=== PATIENT | female | born 1995 | race Asian ===

== ENCOUNTER 2017-07-02 23:06 | Emergency (ER) | payer OTHER ==
[~2017-07-02] VITALS: Ht 172.7 cm; Wt 109.8 kg
== END 2017-07-02 23:43 | disposition home or self-care (01) ==
LOC: ED 23:06
DX: O47.1 False labor at or after 37 completed weeks of gestation (principal); Z3A.39 39 weeks gestation of pregnancy; R39.198 Other difficulties with micturition
CPT/HCPCS: 99284

== ENCOUNTER 2017-12-31 11:38 | Emergency (ER) | payer OTHER ==
[~2017-12-31] VITALS: Ht 172.7 cm; Wt 98.4 kg
== END 2017-12-31 13:05 | disposition home or self-care (01) ==
LOC: ED 11:38
DX: R10.30 Lower abdominal pain, unspecified (principal)
CPT/HCPCS: 99281

== ENCOUNTER 2018-02-05 09:57 | Emergency (ER) | payer OTHER ==
[~2018-02-05] VITALS: Ht 170.2 cm; Wt 99.8 kg
[2018-02-05 10:10] VITALS: TEMP 98.1
[2018-02-05 10:49] LABS: PLATELET COUNT 323 K/uL (152-353)
[2018-02-05 11:13] LABS: POTASSIUM 3.3 mmol/L (3.6-5.2)
[2018-02-05 11:53] VITALS: BP 108/72
== END 2018-02-05 11:53 | disposition home or self-care (01) ==
LOC: ED 09:57
DX: N94.6 Dysmenorrhea, unspecified (principal); N93.8 Other specified abnormal uterine and vaginal bleeding; Z98.890 Other specified postprocedural states
CPT/HCPCS: 74022; 80053; 80307; 81000; 81025; 85027; 99283

== ENCOUNTER 2019-09-24 01:54 | Emergency (ER) | payer OTHER ==
[~2019-09-24] VITALS: Ht 172.7 cm; Wt 1008.8 kg
[2019-09-24 04:22] LABS: PLATELET COUNT 288 K/uL (152-353)
[2019-09-24 04:30] VITALS: BP 127/69; TEMP 98.4
== END 2019-09-24 04:30 | disposition home or self-care (01) ==
LOC: ED 01:54
PROVIDERS: Emergency Medicine
DX: N73.8 Other specified female pelvic inflammatory diseases (principal)
CPT/HCPCS: 36415; 80053; 81000; 81025; 84702; 85027; 87490; 87590; 96360; 96372; 96375; 99284; J0696; J1885

== ENCOUNTER 2019-10-22 17:01 | Emergency (ER) | payer OTHER ==
[~2019-10-22] VITALS: Ht 172.7 cm; Wt 113.4 kg
[2019-10-22] MEDS ORDERED: TRAMADOL HYDROC50 MG PO (17:26)
[2019-10-22 17:29] VITALS: BP 132/86; TEMP 98.1
[2019-10-22 17:40] LABS: PLATELET COUNT 291 K/uL (152-353)
[2019-10-22 17:48] LABS: POTASSIUM 3.5 mmol/L (3.6-5.2)
== END 2019-10-22 19:34 | disposition home or self-care (01) ==
LOC: ED 17:01
PROVIDERS: Emergency Medicine
DX: R10.31 Right lower quadrant pain (principal); R10.32 Left lower quadrant pain
CPT/HCPCS: 36415; 80053; 81000; 81025; 82150; 83690; 85027; 96374; 99284; J1885

== ENCOUNTER 2019-11-27 01:29 | Emergency (ER) | payer OTHER ==
[~2019-11-27] VITALS: Ht 172.7 cm; Wt 113.4 kg
[~2019-11-27 01:29] MED LIST: TRAMADOL HYDROC50 MG PO
[2019-11-27 01:49] LABS: PLATELET COUNT 333 K/uL (152-353)
[2019-11-27 01:53] LABS: POTASSIUM 2.9 mmol/L (3.6-5.2)
[2019-11-27 03:27] VITALS: TEMP 98.1
[2019-11-27 04:25] VITALS: BP 130/64
== END 2019-11-27 04:35 | disposition still patient (30) ==
LOC: ED 01:29
PROVIDERS: Emergency Medicine
PROC: 0T9B70Z Drainage of Bladder with Drainage Device, Via Natural or Artificial Opening (ICD-10-PCS; principal; 2019-11-27)
DX: R55 Syncope and collapse (principal); E87.6 Hypokalemia; F10.129 Alcohol abuse with intoxication, unspecified; T45.0X1A Poisoning by antiallergic and antiemetic drugs, accidental (unintentional), initial encounter; Y92.89 Other specified places as the place of occurrence of the external cause
CPT/HCPCS: 51702; 80053; 80307; 80320; 80329; 81000; 81025; 83605; 85027; 87088; 93005; 96360; 96365; 96375; 99285; J2310; J2405

== ENCOUNTER 2020-04-29 04:33 | Emergency (ER) | payer OTHER ==
[~2020-04-29] VITALS: Ht 172.7 cm; Wt 113.4 kg
[2020-04-29 05:30] VITALS: BP 143/84; TEMP 98.3
== END 2020-04-29 05:30 | disposition home or self-care (01) ==
LOC: ED 04:33
DX: K08.89 Other specified disorders of teeth and supporting structures (principal)
CPT/HCPCS: 96372; 99283; J0696; J1885

== ENCOUNTER 2020-07-13 15:03 | Outpatient (CLI) | payer OTHER ==
[2020-07-13 15:52] LABS: PLATELET COUNT 428 K/uL (152-353)
[2020-07-13 16:01] LABS: POTASSIUM 3.7 mmol/L (3.6-5.2)
== END 2020-07-13 19:37 | disposition home or self-care (01) ==
LOC: LABW 15:03
PROVIDERS: ATTEND Family Medicine
DX: R10.9 Unspecified abdominal pain (principal); R80.9 Proteinuria, unspecified
CPT/HCPCS: 36415; 80053; 84439; 84443; 85007; 85027

== ENCOUNTER 2021-06-14 11:50 | Emergency (ER) | payer OTHER ==
[~2021-06-14] VITALS: Ht 172.7 cm; Wt 127.0 kg
[2021-06-14 12:10] VITALS: BP 115/84; TEMP 98.9
== END 2021-06-14 12:50 | disposition home or self-care (01) ==
LOC: ED 11:50
DX: K04.7 Periapical abscess without sinus (principal); K08.89 Other specified disorders of teeth and supporting structures
CPT/HCPCS: 99281